=== PATIENT | female | born 1990 | race African-American/Black ===

== ENCOUNTER 2023-04-23 14:59 | Emergency (ER) | payer OTHER ==
[2023-04-23 16:33] LABS: BHCG - Serum Negative (NEGATIVE); Pregs Control Background? CLEAR/WHITE (CLR/WHITE); Pregs Control Bar Appear? YES (CONTROL BAR)
[2023-04-23 16:34] LABS: ALT (SGPT) 53 U/L (8-55); AST (SGOT) 87 U/L (5-34); Albumin 3.7 g/dL (3.5-5.0); Alkaline Phosphatase 52 U/L (40-110); Anion Gap 17 mmol/L (10-20); BUN (Urea Nitrogen) Less than 4 mg/dL (7.0-18.7); Bilirubin, Total 1.2 mg/dL (0.2-1.2); Calc. Creatinine Clearance 0 mL/min (70-130); Calcium 8.5 mg/dL (7.8-10.44); Carbon Dioxide 27 mmol/L (22-29); Chloride 97 mmol/L (98-107); Estimated GFR 124; Globulin 3.3 g/dL (2.4-3.5); Glucose 99 mg/dL (70-105); Sodium 138 mmol/L (136-145)
[2023-04-23 16:45] LABS: #Basophils 0.1 10x3/uL (0.0-0.2); #Monocytes 0.8 10x3/uL (0.0-1.1); #Neutrophils 4.3 10x3/uL (1.5-8.4); %Basophils 0.6 % (0.0-2.0); %Eosinophils 0.3 % (0.0-6.0); %Monocytes 9.7 % (0.0-10.0); %Neutrophils 56.1 % (40.0-75.0); Hemoglobin 10.8 g/dL (12.0-15.5); Mean Corpuscular HGB CONC 32.5 g/dL (32.0-36.0); Mean Corpuscular Hemoglobin 28.8 pg (27.0-33.0); Mean Corpuscular Volume 88.5 fl (81.6-98.3); Mean Platelet Volume 9.9 fl (7.4-10.4); Platelet Count 300 10x3/uL (150-450); RBC Distribution Width 23.7 % (11.5-14.5); Red Blood Cell (RBC) Count 3.75 10x6/uL (3.90-5.03); White Blood Cell (WBC) Count 7.7 10x3/uL (3.5-10.5)
[2023-04-23] MEDS ORDERED: Potassium Chloride 20 MEQ TAB ONE (16:45)
[2023-04-23] MEDS ORDERED: Aspirin Chewable 81 MG TAB ONE (16:55)
[2023-04-23 18:47] LABS: Anisocytosis MODERATE=16-30 cells (100X) (0-5/hpf); Platelet Adequacy Comment Appears Adequate
== END 2023-04-23 17:20 | disposition home or self-care (01) ==
LOC: CSHERS 14:59
DX: M21.372 Foot drop, left foot (principal); G62.9 Polyneuropathy, unspecified; F17.210 Nicotine dependence, cigarettes, uncomplicated
CPT/HCPCS: 70450; 80053; 84703; 85025; 93005